=== PATIENT | female | born 1995 | race Caucasian/White ===

== ENCOUNTER 2016-06-24 21:52 | Emergency (ER) | payer BC ==
[~2016-06-24] VITALS: Ht 167.6 cm; Wt 61.4 kg
[2016-06-24 22:00] VITALS: TEMP 36.8; Ht 167.6 cm; Wt 61.4 kg
[2016-06-24] MEDS ORDERED: ACUTANE PO (22:18)
[2016-06-24] MEDS ORDERED: LORA-741 PO (22:18)
[2016-06-24] MEDS ORDERED: CITA20TA9 PO (22:18)
[2016-06-24] MEDS ORDERED: ZOLP10TA PO (22:18)
[2016-06-24] MEDS ORDERED: XYLOCAINE 1%/SOD BICARB 20 ML VIAL INFIL ONE (22:30)
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
[2016-06-25 00:09] VITALS: BP 106/76; PULSE 104; O2SAT 98
== END 2016-06-25 00:11 | disposition home or self-care (01) ==
LOC: C.EDB 21:54 → C.EDC 06-25 00:11
DX: S61.211A Laceration without foreign body of left index finger without damage to nail, initial encounter (principal); W45.8XXA Other foreign body or object entering through skin, initial encounter

== ENCOUNTER 2016-07-24 18:06 | Inpatient (IN) | payer BC ==
[~2016-07-24] VITALS: Ht 167.6 cm; Wt 59.9 kg
[~2016-07-24 18:06] MED LIST: ACUTANE PO; CITA20TA9 PO; LORA-741 PO; ZOLP10TA PO
--- NOTE | 2016-07-24 18:57 | EMERGENCY ROOM VISIT NOTE ---
History Report prepared by Josh: Coby Lopez Under the Supervision of: Dr. Moi Blevins M.D. First contact with patient: 18:29 Chief Complaint: MENTAL HEALTH EVALUATION Stated Complaint: BOTH ARMS LACERATIONS AND NECK, WOUND History of Present Illness The patient is a 21 year old female who presents to the Emergency Room with complaints of severe but resolved suicidal ideation starting yesterday. The patient has been cutting since yesterday. She has multiple cuts over her neck and bilateral arms. She denies cutting her abdomen. The patient denies overdosing on any medication. She took 2 mg of Xanax today as prescribed. She has been drinking alcohol today. She currently denies any suicidal ideation. She has a history of suicide attempt occurring 3 years ago with serotonin overdose. Source of History: patient Onset: yesterday Position: other (global) Symptom Intensity: severe Quality: other (suicidal ideation) Timing: resolved Review of Systems All systems have been listed, reviewed, and are negative other than those previously mentioned. Please see Additional Medical History Sheet. Past Medical & Surgical Medical Problems: (1) Suicide attempt Family History Patient reports no known family medical history. Social History Smoking Status: Never Smoker Marital Status: single Occupation Status: student Current/Historical Medications Scheduled Citalopram Hydrobromide (Celexa), 30 MG PO DAILY Lorazepam (Ativan), 0.5 MG PO PRN Zolpidem Tartrate (Ambien), 10 MG PO HS [Acutane], 30 MG PO DAILY Allergies Coded Allergies: No Known Allergies (Unverified , 07/24/16) Physical Exam Vital Signs Date Time Temp Pulse Resp B/P Pulse Ox O2 Delivery O2 Flow Rate FiO2 07/24/16 21:40 36.1 93 16 129/59 99 Room Air 07/24/16 21:30 94 16 127/60 99 Room Air 07/24/16 21:20 107 16 126/60 99 Room Air 07/24/16 21:10 91 16 112/69 100 Room Air 07/24/16 21:00 100 16 121/54 100 Nasal Cannula 2 07/24/16 20:50 98 16 120/56 100 Nasal Cannula 2 07/24/16 20:43 36.1 100 16 142/93 100 Nasal Cannula 2 07/24/16 19:20 106 20 120/87 100 07/24/16 19:10 107 20 130/88 100 Room Air 07/24/16 19:00 108 20 124/76 100 07/24/16 18:15 36.8 137 20 127/78 96 Room Air Physical Exam GENERAL: Patient awake, alert, oriented x 3. Patient follows commands. Patient does not appear toxic. Patient is adequately hydrated and well- nourished. SKIN: No erythema, pallor, cyanosis or rash HEENT: Normal head, pupils equal, reactive to light and accommodation. Oral cavity and posterior pharynx appear normal. Neck: Without adenopathy, no neck vein distention. 5.5 cm laceration right over the carotid artery and a 4.5 cm laceration just medial to that. LUNGS: Clear to auscultation. No wheezes, no rales, no rhonchi. HEART: No murmurs. No gallops. No rubs ABDOMEN: No masses, no rebound, no hepatomegaly or splenomegaly. EXTREMITIES: 3 cm laceration left antecubital fossa. Multiple scratches on left forearm. Two 3 cm lacerations over right antecubital fossa. 3.5 cm laceration on right wrist. No pedal or pretibial edema. No calf or thigh tenderness. NEUROLOGIC: Cranial nerves II-XII within normal limits. No gross motor sensory function deficits. PSYCH: Awake, alert. Patient currently denies any suicidal ideation. Medical Decision & Procedures Laboratory Results 07/24/16 21:15 07/24/16 18:50 Test 07/24/16 18:23 07/24/16 18:50 07/24/16 21:15 Urine Opiates Screen NEG (NEG) Urine Methadone, Qualitative NEG (NEG) Urine Barbiturates NEG (NEG) Urine Phencyclidine (PCP) Level NEG (NEG) Ur Amphetamine/Methamphetamine NEG (NEG) MDMA (Ecstasy) Screen NEG (NEG) Urine Benzodiazepines Screen POS (NEG) Urine Cocaine Metabolite NEG (NEG) Urine Marijuana (THC) NEG (NEG) Immature Granulocyte % (Auto) 0.1 % White Blood Count 7.78 K/uL (4.8-10.8) Red Blood Count 3.91 M/uL (4.2-5.4) 3.30 M/uL (4.2-5.4) Hemoglobin 12.5 g/dL (12.0-16.0) Hematocrit 35.8 % (37-47) Mean Corpuscular Volume 91.6 fL (80-100) 92.1 fL (80-100) Mean Corpuscular Hemoglobin 32.0 pg (25-34) 31.2 pg (25-34) Mean Corpuscular Hemoglobin Concent 34.9 g/dl (32-36) 33.9 g/dl (32-36) Platelet Count 221 K/uL (130-400) Mean Platelet Volume 9.7 fL (7.4-10.4) 8.7 fL (7.4-10.4) Neutrophils (%) (Auto) 62.3 % Lymphocytes (%) (Auto) 29.8 % Monocytes (%) (Auto) 7.1 % Eosinophils (%) (Auto) 0.4 % Basophils (%) (Auto) 0.3 % Neutrophils # (Auto) 4.85 K/uL (1.4-6.5) Lymphocytes # (Auto) 2.32 K/uL (1.2-3.4) Monocytes # (Auto) 0.55 K/uL (0.11-0.59) Eosinophils # (Auto) 0.03 K/uL (0-0.5) Basophils # (Auto) 0.02 K/uL (0-0.2) Immature Granulocyte # (Auto) 0.01 K/uL (0.00-0.02) Anion Gap 10.0 mmol/L (3-11) Est Creatinine Clear Calc Drug Dose 113.1 ml/min Estimated GFR () 135.5 Estimated GFR (Non- 116.9 BUN/Creatinine Ratio 13.2 (10-20) Calcium Level 8.7 mg/dl (8.5-10.1) Total Bilirubin 0.3 mg/dl (0.2-1) Aspartate Amino Transf (AST/SGOT) 14 U/L (15-37) Alanine Aminotransferase (ALT/SGPT) 25 U/L (12-78) Alkaline Phosphatase 84 U/L (45-117) Total Protein 7.4 gm/dl (6.4-8.2) Albumin 4.1 gm/dl (3.4-5.0) Globulin 3.3 gm/dl (2.5-4.0) Albumin/Globulin Ratio 1.2 (0.9-2) Salicylates Level < 1.7 mg/dl (2.8-20) Acetaminophen Level < 2 ug/ml (10-30) Ethyl Alcohol mg/dL 188.0 mg/dl (0-3) RDW Standard Deviation 45.4 fL (36.4-46.3) RDW Coefficient of Variation 13.6 % (11.5-14.5) Laboratory results as stated above per my review. ECG Indication: other (Neck lacerations) Rate (beats per minute): 101 Rhythm: sinus tachycardia Findings: no acute ischemic change, no ectopy ED Course 1828: Past medical records reviewed. The patient was evaluated in room A06. A complete history and physical examination was performed. 1834: I discussed the patient's case with Emergency Room nurse. Patient's friend informed nurse that patient is still suicidal. 1845: I discussed the patient's case with Dr. Alcantara, dressmaker garment fitter. He will evaluate the patient in the Emergency Room. 1903: I spoke with Dr. Alcantara once again. He will take the patient to the OR. Upon reevaluation, the patient is resting comfortably. I discussed today's findings with her. She verbalized agreement of the treatment plan. 2209: I discussed the patient's case with Dr. Jovel, from [facility]. Medical Decision Differential diagnosis includes but is not limited to multiple lacerations, suicide attempt, compromise of circulatory system, anemia, drug overdose, depression. Multiple labs and EKG were evaluated. Please see above. The patient does not appear to have taken any toxic ingestion. The patient has multiple lacerations from her attempts at killing herself. I was obviously most concerned about the to neck lacerations. They did appear to penetrate the platysma. I discussed care with Dr. Alcantara over the phone who also evaluated the patient here in the ED and took the patient to the operating room. He agreed to also care for the other lacerations. I later discussed care with the hospitalist to admit the patient from the postop area to a regular hospital bed. The patient also require further mental health evaluation. Consults Time Called: 1844 Consulting Physician: Dr. Alcantara, dressmaker garment fitter Returned Call: 1845 I discussed the patient's case with Dr. Alcantara, dressmaker garment fitter. He will evaluate the patient in the Emergency Room. Additional Consults: Time Called: 2144 Consulted Physician: Dr. Jovel, from [facility] Returned Call: 2209 Additional Comments: I discussed the patient's case with Dr. Jovel, from [facility]. Impression Primary Impression: Laceration of neck Additional Impressions: Multiple lacerations Suicide attempt Depression Critical Care I have personally spent greater than 35 minutes of critical care time in the direct management of this patient. This includes bedside care, interpretation of diagnostic studies, and testing, discussion with consultants, patient, and family members, and other required patient management activities. This 35 minutes is in excess of all separately billable procedures. Scribe Attestation The scribe's documentation has been prepared under my direction and personally reviewed by me in its entirety. I confirm that the note above accurately reflects all work, treatment, procedures, and medical decision making performed by me. Departure Information Dispostion Being Evaluated By Surgeon Patient Instructions My [facility] Problem Qualifiers
[2016-07-24] MEDS ORDERED: BACITRACIN OINT 15 GM TUBE ONE (19:02)
[2016-07-24 19:06] LABS: BENZODIAZEPINE, URINE POS (NEG); COCAINE,URINE NEG (NEG); PHENCYCLIDINE, URINE NEG (NEG)
[2016-07-24 19:17] LABS: BASO % 0.3 %; BASO ABS # 0.02 K/uL (0-0.2); COMPLETE YES; EOS % 0.4 %; HEMATOCRIT 35.8 % (37-47); IG% 0.1 %; LYMPH % 29.8 %; LYMPH ABS # 2.32 K/uL (1.2-3.4); MEAN CELL VOLUME 91.6 fL (80-100); MEAN CORPUSCULAR HGB CONC 34.9 g/dl (32-36); MEAN PLATELET VOLUME 9.7 fL (7.4-10.4); MONO % 7.1 %; NEUT % 62.3 %; PLATELET COUNT 221 K/uL (130-400); RED BLOOD COUNT 3.91 M/uL (4.2-5.4); WHITE BLOOD COUNT 7.78 K/uL (4.8-10.8)
[2016-07-24] MEDS ORDERED: FENTANYL CITRATE INJ 50 MCG/1 ML 2 ML VIAL ONE (19:20)
[2016-07-24] MEDS ORDERED: MIDAZOLAM HCL 1 MG/ML 2ML VIAL ONE (19:20)
[2016-07-24] MEDS ORDERED: ONDANSETRON INJ 2 MG/ML 2 ML VIAL IV PRN ×2 (19:30→22:30)
[2016-07-24] MEDS ORDERED: ATROPINE SULFATE 0.1 MG/ML 5ML SYR IV PRN (19:30)
[2016-07-24] MEDS ORDERED: HYDROmorphone INJ 2 MG/ML SYR/VIAL IV PRN (19:30)
[2016-07-24 19:34] LABS: ACETAMINOPHEN < 2 ug/ml (10-30)
[2016-07-24 19:35] LABS: BUN/CREATININE RATIO 13.2 (10-20); CALCIUM 8.7 mg/dl (8.5-10.1); CREATININE 0.73 mg/dl (0.60-1.20); POTASSIUM 3.3 mmol/L (3.5-5.1)
[2016-07-24 19:37] LABS: ALB/GLOB RATIO 1.2 (0.9-2)
[2016-07-24] MEDS ORDERED: CEFAZOLIN SOD 1 GM VIAL ONE (19:38)
[2016-07-24] MEDS ORDERED: PROPOFOL IV EMULSION 10 MG/ML 20 ML VIAL IV ONE (19:38)
[2016-07-24] MEDS ORDERED: LIDOCAINE HCL 2% 2 ML VIAL (20MG/ML) ONE (19:38)
[2016-07-24] MEDS ORDERED: SUCCINYLCHOLINE 100MG/5ML SYR IV ONE (19:38)
--- NOTE | 2016-07-24 21:22 | Anesthesiology Progress Note ---
Anesthesia Post Op Note Date & Time Jul 24, 2016 at 21:21 Vital Signs Pain Intensity: 0 Vital Signs Past 12 Hours Date Time Temp Pulse Resp B/P Pulse Ox O2 Delivery O2 Flow Rate FiO2 07/24/16 21:10 91 16 112/69 100 Room Air 07/24/16 21:00 100 16 121/54 100 Nasal Cannula 2 07/24/16 20:50 98 16 120/56 100 Nasal Cannula 2 07/24/16 20:43 36.1 100 16 142/93 100 Nasal Cannula 2 07/24/16 19:20 106 20 120/87 100 07/24/16 19:10 107 20 130/88 100 Room Air 07/24/16 19:00 108 20 124/76 100 07/24/16 18:15 36.8 137 20 127/78 96 Room Air Notes Mental Status: alert / awake / arousable, participated in evaluation Pt Amnestic to Procedure: Yes Nausea / Vomiting: adequately controlled Pain: adequately controlled Airway Patency, RR, SpO2: stable & adequate BP & HR: stable & adequate Hydration State: stable & adequate Anesthetic Complications: no major complications apparent
[2016-07-24 21:29] LABS: HEMATOCRIT 30.4 % (37-47); MEAN CELL VOLUME 92.1 fL (80-100); MEAN CORPUSCULAR HEMOGLOBIN 31.2 pg (25-34); MEAN CORPUSCULAR HGB CONC 33.9 g/dl (32-36); MEAN PLATELET VOLUME 8.7 fL (7.4-10.4); PLATELET COUNT 177 K/uL (130-400)
[2016-07-24] MEDS ORDERED: NURSING VERBAL MED ORDER ONE (21:45)
--- NOTE | 2016-07-24 21:52 | OPERATIVE REPORT ---
DATE OF OPERATION: 07/24/2016 DIAGNOSES: Suicide attempt with multiple lacerations of right, left, mid neck; also of both elbows; both wrists and the right hand. PROCEDURE: Hemostasis of left neck wound, small arterial bleeder followed by repair of multiple lacerations. SURGEON: Kait Alcantara MD ANESTHESIA: General endotracheal. COMPLICATIONS: None. BLOOD LOSS: 20 mL. HISTORY OF PRESENT ILLNESS: A 21-year-old girl, who developed suicidal ideations yesterday, has been cutting herself, since she has multiple cuts over her neck and bilateral arms. DESCRIPTION OF PROCEDURE: The patient was brought to the operating room. There was a spurting vessel in the laceration in the left neck which went deep to the platysma. The wound was opened after prepping with Betadine paint and then the bleeder was found deep to the platysma and cauterized using the Bovie with good control. Other bleeders were also controlled using the Bovie. At this point, the large laceration was closed in layers with interrupted 4-0 Vicryl sutures on the platysmal layer, also the subcutaneous layer and then interrupted 4-0 nylon on the skin. This was a 10 cm incision on the left side of the neck. There was another 6 cm incision over the mid neck which was repaired and another 4 cm incision on the right side of the neck which was repaired; these did not go through the platysmal layer. Attention was turned to the elbows, in the antecubital fossa there were 2 linear lacerations; these were repaired with interrupted 4-0 nylon sutures. There was a T-type laceration in the left antecubital fossa which was repaired with interrupted 4-0 nylon sutures. The wrist lacerations were also repaired using nylon sutures. The smaller lacerations were closed with Dermabond. The patient tolerated the procedure well and was taken to the recovery area in satisfactory condition. She would be admitted via the psychiatry or hospitalist to monitor her and to address the suicidal attempt. I attest to the content of the Intraoperative Record and any orders documented therein. Any exceptions are noted below. DOYLE
[2016-07-24 22:02] VITALS: BP 130/66; PULSE 103; TEMP 36.9; O2SAT 97; Ht 167.6 cm; Wt 59.9 kg
--- NOTE | 2016-07-24 22:04 | HISTORY & PHYSICAL EXAMINATION ---
DATE OF ADMISSION: 07/24/2016 CHIEF COMPLAINT: Multiple lacerations. HISTORY OF PRESENT ILLNESS: A 21-year-old with multiple lacerations over her neck and antecubital fossa and arms and wrists. She did have a history of suicide, also 3 years ago with serotonin overdose. PAST MEDICAL HISTORY: As noted on chart. PHYSICAL EXAMINATION: GENERAL: Showed an alert, oriented, female in no acute distress; however, she did have a spurting blood vessel from the left neck wound. This was a small stream of bright red blood and probably a small artery. HEAD: Normocephalic. EYES: Normal. EARS: Tympanic membranes intact. NOSE: Nasal passages patent. THROAT: Oropharynx normal. NECK: There were multiple lacerations, the largest within the left neck which extended beneath the platysma layer. There was also a laceration in the mid neck and of the right neck. There were lacerations of both antecubital fossa and laceration of both arms and wrists. HEART: RRR. LUNGS: Clear. ABDOMEN: Soft. GENITOURINARY: Deferred. EXTREMITIES: Lacerations as noted above. IMPRESSION: Multiple lacerations and suicide attempt. PLAN: For repair in the OR.
[2016-07-24] MEDS ORDERED: ACETAMINOPHEN 325 MG TAB PO PRN ×2 (22:15→22:30)
[2016-07-24 22:28] VITALS: BP 137/90; PULSE 110; O2SAT 100
[2016-07-24] MEDS ORDERED: ALUMINUM/MAGNESIUM/SIMETH (MAALOX MAX) 30 ML UDC PO PRN (22:30)
[2016-07-24] MEDS ORDERED: IV FLUIDS COMPLETED PRN (22:30)
[2016-07-24] MEDS ORDERED: MAGNESIUM HYDROXIDE SUSP 30 ML UDC PO PRN (22:30)
[2016-07-24] MEDS ORDERED: ZOLPIDEM TARTRATE 5 MG TAB PO PRN (22:30)
[2016-07-24] MEDS ORDERED: POLYETHYLENE (MIRALAX) 17 GM PACK PO PRN (22:30)
[2016-07-24 23:00] VITALS: BP 123/82; PULSE 101; O2SAT 99
[2016-07-25] VITALS: BP 131/68; PULSE 107; O2SAT 97
[2016-07-25 00:56] VITALS: BP 116/64; PULSE 109; O2SAT 96
[2016-07-25 03:08] VITALS: BP 93/58; PULSE 105; TEMP 36.8; O2SAT 96
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
[2016-07-25 07:16] VITALS: BP 92/57; PULSE 91; TEMP 36.6; O2SAT 97
[2016-07-25] MEDS: TRAMADOL HCL 50 MG TAB PO PRN ×3 (10:36→15:19)
--- NOTE | 2016-07-25 13:50 | Progress Note ---
Subjective Date of Service: Jul 25, 2016. Subjective Pt evaluation today including: conversation w/ patient Pt states her laceration repair is sore, but doing fine otherwise. No bleeding. No issues breathing or swallowing. She no longer wants to hurt herself. Pt states that once she is d/c'd, she, another roommate, and her [place] and that the problem roommate will have to leave. In the meantime, pt states she will be staying with a friend and will have no reason for interaction with problematic roommate. Pt does note that she has been on accutane for 3 months, although out for the last 3 days. She was to see derm today for refill and was requesting refill from our providers. Pt denies fever, SOB, chest pain, abd pain, n/v/c/d, LE pain or swelling. Eating well. ROS as noted above, otherwise neg. Problem List Medical Problems: (1) Depression Status: Acute (2) Finger laceration Status: Acute (3) Laceration of neck Status: Acute (4) Multiple lacerations Status: Acute (5) Suicide attempt Status: Acute Objective Vital Signs Date Time Temp Pulse Resp B/P Pulse Ox O2 Delivery O2 Flow Rate FiO2 07/25/16 08:15 Room Air 97.0 07/25/16 07:16 36.6 91 16 92/57 97 Room Air 07/25/16 03:08 36.8 105 18 93/58 96 Room Air 07/25/16 00:56 109 16 116/64 96 Room Air 07/25/16 00:00 Room Air 07/25/16 00:00 107 16 131/68 97 Room Air 07/24/16 23:00 101 16 123/82 99 Room Air 07/24/16 22:28 110 16 137/90 100 Room Air 07/24/16 22:02 36.9 103 16 130/66 97 Room Air 07/24/16 21:40 36.1 93 16 129/59 99 Room Air 07/24/16 21:30 94 16 127/60 99 Room Air 07/24/16 21:20 107 16 126/60 99 Room Air 07/24/16 21:10 91 16 112/69 100 Room Air 07/24/16 21:00 100 16 121/54 100 Nasal Cannula 2 07/24/16 20:50 98 16 120/56 100 Nasal Cannula 2 07/24/16 20:43 36.1 100 16 142/93 100 Nasal Cannula 2 07/24/16 19:20 106 20 120/87 100 07/24/16 19:10 107 20 130/88 100 Room Air 07/24/16 19:00 108 20 124/76 100 07/24/16 18:15 36.8 137 20 127/78 96 Room Air Physical Exam General Appearance: WD/WN, no apparent distress Respiratory/Chest: normal breath sounds, no respiratory distress Cardiovascular: regular rate, rhythm, no edema Abdomen: non tender, soft Extremities: non-tender, no pedal edema Neurologic/Psychiatric: alert, normal mood/affect, oriented x 3 Skin: normal color, warm/dry, + pertinent finding (lacerations are clean and dry with sutures in place) Laboratory Results Last 24 Hours Test 07/24/16 18:23 07/24/16 18:50 07/24/16 21:15 Urine Opiates Screen NEG Urine Methadone, Qualitative NEG Urine Barbiturates NEG Urine Phencyclidine (PCP) Level NEG Ur Amphetamine/Methamphetamine NEG MDMA (Ecstasy) Screen NEG Urine Benzodiazepines Screen POS Urine Cocaine Metabolite NEG Urine Marijuana (THC) NEG White Blood Count 7.78 K/uL 6.90 K/uL Red Blood Count 3.91 M/uL 3.30 M/uL Hemoglobin 12.5 g/dL 10.3 g/dL Hematocrit 35.8 % 30.4 % Mean Corpuscular Volume 91.6 fL 92.1 fL Mean Corpuscular Hemoglobin 32.0 pg 31.2 pg Mean Corpuscular Hemoglobin Concent 34.9 g/dl 33.9 g/dl Platelet Count 221 K/uL 177 K/uL Mean Platelet Volume 9.7 fL 8.7 fL Neutrophils (%) (Auto) 62.3 % Lymphocytes (%) (Auto) 29.8 % Monocytes (%) (Auto) 7.1 % Eosinophils (%) (Auto) 0.4 % Basophils (%) (Auto) 0.3 % Neutrophils # (Auto) 4.85 K/uL Lymphocytes # (Auto) 2.32 K/uL Monocytes # (Auto) 0.55 K/uL Eosinophils # (Auto) 0.03 K/uL Basophils # (Auto) 0.02 K/uL RDW Standard Deviation 45.4 fL 45.4 fL RDW Coefficient of Variation 13.7 % 13.6 % Immature Granulocyte % (Auto) 0.1 % Immature Granulocyte # (Auto) 0.01 K/uL Sodium Level 146 mmol/L Potassium Level 3.3 mmol/L Chloride Level 112 mmol/L Carbon Dioxide Level 24 mmol/L Anion Gap 10.0 mmol/L Blood Urea Nitrogen 10 mg/dl Creatinine 0.73 mg/dl Est Creatinine Clear Calc Drug Dose 113.1 ml/min Estimated GFR () 135.5 Estimated GFR (Non- 116.9 BUN/Creatinine Ratio 13.2 Random Glucose 77 mg/dl Calcium Level 8.7 mg/dl Total Bilirubin 0.3 mg/dl Aspartate Amino Transf (AST/SGOT) 14 U/L Alanine Aminotransferase (ALT/SGPT) 25 U/L Alkaline Phosphatase 84 U/L Total Protein 7.4 gm/dl Albumin 4.1 gm/dl Globulin 3.3 gm/dl Albumin/Globulin Ratio 1.2 Salicylates Level < 1.7 mg/dl Acetaminophen Level < 2 ug/ml Ethyl Alcohol mg/dL 188.0 mg/dl Assessment and Plan 21 y/o F who was admitted following multiple self inflicted knife lacerations in an admitted attempt to commit suicide. She inflicted a neck laceration involving deep tissue and required surgical repair at the time of admission. She is stable following intervention. Psych: awaiting psychiatrist eval Pt denies further SI, although pt has prior hx of OD attempt Needs set up with psych care in the area Pt has been on Accutane x3 months, possibly exacerbated current social issues to lead to SI? I did discuss with pt that this is a possibility. She does state preference to continue the remaining 3 months of tx. I advised her that her labs could be sent to derm, but ongoing use would be at their discretion pending further psych input Neck lacerations, she can f/u with ENT Full code - SCDs only due to lacerations
--- NOTE | 2016-07-25 14:17 | PROGRESS NOTE ---
DATE: 07/25/2016 DATE: 07/25/2016. DIAGNOSIS: Suicide attempt with multiple lacerations. SUBJECTIVE: The patient feels much better. OBJECTIVE: She is awake, alert and appears to be happy today. The lacerations inspected show no sign of infection and all the lacerations have been closed from last night. IMPRESSION: Status post repair of multiple lacerations status post suicide attempt. PLAN: Awaiting psychiatric consultation for further disposition.
--- NOTE | 2016-07-25 15:03 | Discharge Instructions ---
Discharge Instructions Admission Reason for Admission: Both Arms Lacerations And Neck, Wound Discharge Discharge Diagnosis / Problem: Suicide attempt, neck laceration Discharge Goals Goal(s): Decrease discomfort, Improve function, Increase independence Activity Recommendations Activity Level: Up Ad [place]ma . Additional Information Patient informed of condition: Yes Advance Directives: No DNR: No Level of Care: Other Communicable Disease: No Prognosis: Stable Current Hospital Diet Patient's current hospital diet: Regular Diet Discharge Diet Recommended Diet: Regular Diet Procedures Procedures Performed: Repair of left neck, mid neck, and right neck lacerations; repair of right and left wrist lacerations. Pending Studies Studies pending at discharge: no Medical Emergencies . Who to Call and When: Medical Emergencies: If at any time you feel your situation is an emergency, please call 911 immediately. . Non-Emergent Contact Non-Emergency issues call your: Primary Care Provider . . "Provider Documentation" section prepared by Chantel Griffin. Core Measure Problem Core Measures: None
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
[2016-07-25 15:42] VITALS: BP 111/77; PULSE 99; TEMP 36.7; O2SAT 97
[2016-07-25 16:13] VITALS: BP 111/77; PULSE 99; TEMP 36.7; O2SAT 97
[2016-07-25] MEDS ORDERED: ISOT1CAP PO (19:11)
[2016-07-28 15:04] LABS: HYDROXYETHYLFLURAZEPAM CONF NEGATIVE NG/ML (CUTOFF=50); HYDROXYMIDAZOLAM NEGATIVE NG/ML (CUTOFF=50); HYDROXYTRIAZOLAM CONF NEGATIVE NG/ML (CUTOFF=50); TEMAZEPAM CONF NEGATIVE NG/ML (CUTOFF=50)
== END 2016-07-25 17:00 | DRG 983 ==
LOC: C.EDB 18:08 → C.MSN 22:00 → OBSVTOIN 22:27
PROVIDERS: ADMIT Otolaryngology; ATTEND Family Medicine
PROC: 0HQDXZZ Repair Right Lower Arm Skin, External Approach (ICD-10-PCS; 2016-07-24)
PROC: 0W360ZZ Control Bleeding in Neck, Open Approach (ICD-10-PCS; 2016-07-24)
PROC: 0HQ4XZZ Repair Neck Skin, External Approach (ICD-10-PCS; principal; 2016-07-24 18:55)
PROC: 0HQEXZZ Repair Left Lower Arm Skin, External Approach (ICD-10-PCS; 2016-07-24 18:55)
DX: S11.81XA Laceration without foreign body of other specified part of neck, initial encounter (principal); F17.210 Nicotine dependence, cigarettes, uncomplicated; Z79.899 Other long term (current) drug therapy; F41.9 Anxiety disorder, unspecified; F32.9 Major depressive disorder, single episode, unspecified; S51.012A Laceration without foreign body of left elbow, initial encounter; S51.011A Laceration without foreign body of right elbow, initial encounter; S61.511A Laceration without foreign body of right wrist, initial encounter; S61.512A Laceration without foreign body of left wrist, initial encounter; S61.411A Laceration without foreign body of right hand, initial encounter; X78.1XXA Intentional self-harm by knife, initial encounter

== ENCOUNTER 2016-07-25 17:05 | Inpatient (IN) | payer BC ==
[~2016-07-25] VITALS: Ht 170.2 cm; Wt 59.8 kg
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
[2016-07-25 17:23] VITALS: BP 118/82; PULSE 105; TEMP 37.1; Ht 170.2 cm; Wt 59.8 kg
[2016-07-25] MEDS ORDERED: NURSING VERBAL MED ORDER ONE (18:15)
[2016-07-25] MEDS ORDERED: SODIUM CHLORIDE 0.65% NA SOLN 45 ML (OCEAN) PRN ×2 (18:30)
[2016-07-25] MEDS ORDERED: BISMUTH SUBSALICYLATE PER ML OMNICELL CHARGE PO PRN ×2 (18:30)
[2016-07-25] MEDS ORDERED: hydrOXYzine HCL 25 MG TAB PO PRN ×3 (18:30)
[2016-07-25] MEDS ORDERED: MAGNESIUM HYDROXIDE SUSP 30 ML UDC PO PRN ×2 (18:30)
[2016-07-25] MEDS ORDERED: ALUMINUM/MAGNESIUM SUSP 30 ML UDC PO PRN ×2 (18:30)
[2016-07-25] MEDS ORDERED: ACETAMINOPHEN 325 MG TAB PO PRN (18:30)
[2016-07-25] MEDS: ACETAMINOPHEN 325 MG TAB PO PRN (19:04)
[2016-07-25] MEDS ORDERED: ISOT1CAP PO (19:11)
[2016-07-26 07:03] VITALS: BP_SYST 110; BP_SYST 119; BP_DIAS 73; BP_DIAS 81; PULSE 89; PULSE 99; TEMP 36.9
[2016-07-26] MEDS ORDERED: INFLUENZA ADMINISTRATION CHARGE ONE (09:00)
[2016-07-26] MEDS ORDERED: INFLUENZA VIRUS QUAD VACCINE 0.5 ML SYR IM. ONE (09:00)
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
[2016-07-26] MEDS: hydrOXYzine HCL 25 MG TAB PO PRN (23:51)
[2016-07-27 07:08] VITALS: BP_SYST 102; BP_SYST 115; BP_DIAS 64; BP_DIAS 67; PULSE 96; PULSE 99; TEMP 36.9
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
[2016-07-27] MEDS: hydrOXYzine HCL 25 MG TAB PO PRN (23:21)
[2016-07-28 07:11] VITALS: BP_SYST 105; BP_SYST 95; BP_DIAS 61; BP_DIAS 64; PULSE 120; PULSE 91; TEMP 36.9
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
[2016-07-28] MEDS: ACETAMINOPHEN 325 MG TAB PO PRN (14:55)
[2016-07-28] MEDS: hydrOXYzine HCL 25 MG TAB PO PRN (23:39)
[2016-07-29 07:09] VITALS: BP_SYST 102; BP_SYST 106; BP_DIAS 64; BP_DIAS 70; PULSE 118; PULSE 69; TEMP 36.9
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
== END 2016-07-29 15:17 | disposition home or self-care (01) | DRG 881 ==
LOC: C.MHU 17:05
PROVIDERS: ADMIT Psychiatry & Neurology Child & Adolescent Psychiatry; ATTEND Psychiatry & Neurology Psychiatry
DX: F32.9 Major depressive disorder, single episode, unspecified (principal); F33.2 Major depressive disorder, recurrent severe without psychotic features; S41.119A Laceration without foreign body of unspecified upper arm, initial encounter; S11.91XA Laceration without foreign body of unspecified part of neck, initial encounter; X78.9XXA Intentional self-harm by unspecified sharp object, initial encounter; L70.9 Acne, unspecified; F17.200 Nicotine dependence, unspecified, uncomplicated; Z82.3 Family history of stroke; Z62.810 Personal history of physical and sexual abuse in childhood